=== PATIENT | female | born 1975 | race Caucasian/White ===

== ENCOUNTER 2016-11-02 17:26 | Emergency (ER) | payer MEDICAID ==
[2014-03-03 09:09] VITALS: BMI 37.8
[~2016-11-02 17:26] MED LIST: ADVAIR 250/501 DISK INH; CATAPRES0.1 MG PO; DEMEROL50 MG PO; DEXILANT60 MG PO; HYZAAR 50-12.51 TAB PO; K-DUR20 MEQ PO; KLONOPIN0.5 MG PO; LEVSIN/ANASP0.125 MG PO; MOTRIN400 MG PO; PROZAC20 MG PO; SINGULAIR10 MG PO; VENTOLIN HFA18 GM INH
[2016-11-02 17:55] LABS: BASOPHILS 0.1 % (0-2); EOSINOPHILS 1.7 % (0-7); HEMATOCRIT 40.1 % (36.0-48.0); HEMOGLOBIN 12.8 g/dL (12-16); IMMATURE GRANULOCYTES 0.3 % (0-5); LYMPHOCYTES 27.7 % (15-50); MCH 26.2 pg (26.0-34.0); MCHC 31.9 g/dL (31.0-37.0); MEAN PLATELET VOLUME 10.5 fL (7.4-10.4); MONOCYTES 7.2 % (2-11); PLATELET COUNT 311 10x3/uL (130-400); RBC 4.89 10x6/uL (4.00-5.40); RDW 14.4 % (11.5-14.5); WBC 8.6 10x3/uL (4.8-10.8)
[2016-11-02 18:22] LABS: ALBUMIN 3.4 g/dL (3.4-5.0); ALKALINE PHOSPHATASE 106 U/L (46-116); ALT (SGPT) 23 U/L (10-68); BILIRUBIN - TOTAL 0.21 mg/dL (0.2-1.3); CALC OSMOLALITY 278 mosm/kg (275-300); CALCIUM 8.6 mg/dL (8.5-10.1); CARBON DIOXIDE 29.8 mmol/L (21.0-32.0); CHLORIDE - SERUM 102 mmol/L (98-107); CREATININE - SERUM 0.8 mg/dL (0.6-1.3); GLUCOSE 131 mg/dL (74-106); POTASSIUM - SERUM 3.6 mmol/L (3.5-5.1); PROTEIN - SERUM 7.7 g/dL (6.4-8.2); SODIUM 139 mmol/L (136-145); UREA NITROGEN 10 mg/dL (7-18); eGFR NON AFRICAN AMERICAN 83 mL/min (90-120)
[2016-11-02 18:28] LABS: CHOLESTEROL, TOTAL 204 mg/dL (0-200); CKMB 0.2 U/L (0.0-3.6); CREATINE KINASE 36 UL (21-215); HDL CHOLESTEROL 41 mg/dL (32-96); LDL CHOLESTEROL 140 mg/dL (0-100); LDL-HDL RATIO 3.4 ratio (1.5-3.5); TRIGLYCERIDE 118 mg/dL (30-200)
[2016-11-02 18:30] LABS: TROPONIN-I < 0.017 ng/mL (0.000-0.060)
== END 2016-11-02 20:17 | disposition home or self-care (01) ==
LOC: D.ER 17:26
PROVIDERS: Family Medicine
DX: R07.89 Other chest pain (principal); K21.9 Gastro-esophageal reflux disease without esophagitis; I10 Essential (primary) hypertension; K58.9 Irritable bowel syndrome, unspecified; J45.909 Unspecified asthma, uncomplicated

== ENCOUNTER 2017-03-21 15:43 | Emergency (ER) | payer MEDICARE, MEDICAID ==
[2014-03-03 09:09] VITALS: BMI 37.8
[2017-03-21 17:08] LABS: BASOPHILS 0.1 % (0-2); EOSINOPHILS 0.9 % (0-7); HEMATOCRIT 41.9 % (36.0-48.0); HEMOGLOBIN 13.8 g/dL (12-16); IMMATURE GRANULOCYTES 0.5 % (0-5); LYMPHOCYTES 22.2 % (15-50); MCH 26.4 pg (26.0-34.0); MCHC 32.9 g/dL (31.0-37.0); MCV 80.1 fL (80.0-100.0); MEAN PLATELET VOLUME 12.7 fL (7.4-10.4); MONOCYTES 6.8 % (2-11); NEUTROPHILS 69.5 % (40-80); PLATELET COUNT 292 10x3/uL (130-400); RBC 5.23 10x6/uL (4.00-5.40); RDW 14.5 % (11.5-14.5); WBC 8.5 10x3/uL (4.8-10.8)
[2017-03-21 17:31] LABS: ALBUMIN 3.3 g/dL (3.4-5.0); ALKALINE PHOSPHATASE 128 U/L (46-116); ALT (SGPT) 23 U/L (10-68); BILIRUBIN - TOTAL 0.13 mg/dL (0.2-1.3); CALC OSMOLALITY 274 mosm/kg (275-300); CALCIUM 8.8 mg/dL (8.5-10.1); CARBON DIOXIDE 29.6 mmol/L (21.0-32.0); CHLORIDE - SERUM 104 mmol/L (98-107); CREATININE - SERUM 1.1 mg/dL (0.6-1.3); GLUCOSE 103 mg/dL (74-106); POTASSIUM - SERUM 3.6 mmol/L (3.5-5.1); PROTEIN - SERUM 7.4 g/dL (6.4-8.2); SODIUM 138 mmol/L (136-145); UREA NITROGEN 11 mg/dL (7-18); eGFR NON AFRICAN AMERICAN 58 mL/min (90-120)
[2017-03-21 17:42] LABS: CHOL - HDL RATIO 4.9 ratio (2.3-4.1); CHOLESTEROL, TOTAL 187 mg/dL (0-200); CKMB 0.3 U/L (0.0-3.6); CREATINE KINASE 40 UL (21-215); HDL CHOLESTEROL 38 mg/dL (32-96); LDL CHOLESTEROL 127 mg/dL (0-100); LDL-HDL RATIO 3.3 ratio (1.5-3.5); TRIGLYCERIDE 110 mg/dL (30-200)
[2017-03-21 17:44] LABS: TROPONIN-I < 0.017 ng/mL (0.000-0.060)
== END 2017-03-21 18:49 | disposition home or self-care (01) ==
LOC: D.ER 15:43
PROVIDERS: Emergency Medicine
DX: R07.89 Other chest pain (principal); F17.200 Nicotine dependence, unspecified, uncomplicated

== ENCOUNTER 2017-05-30 10:47 | Emergency (ER) | payer MEDICARE, MEDICAID ==
[2014-03-03 09:09] VITALS: BMI 37.8
== END 2017-05-30 12:58 | disposition home or self-care (01) ==
LOC: D.ER 10:47
DX: S20.229A Contusion of unspecified back wall of thorax, initial encounter (principal); S30.0XXA Contusion of lower back and pelvis, initial encounter; W01.0XXA Fall on same level from slipping, tripping and stumbling without subsequent striking against object, initial encounter; Y93.89 Activity, other specified; Y92.019 Unspecified place in single-family (private) house as the place of occurrence of the external cause; F17.200 Nicotine dependence, unspecified, uncomplicated; K21.9 Gastro-esophageal reflux disease without esophagitis; I10 Essential (primary) hypertension

== ENCOUNTER 2017-06-19 19:28 | Emergency (ER) | payer MEDICARE ==
[2014-03-03 09:09] VITALS: BMI 37.8
[2017-06-19 20:02] LABS: BASOPHILS 0.2 % (0-2); EOSINOPHILS 1.4 % (0-7); HEMATOCRIT 39.6 % (36.0-48.0); HEMOGLOBIN 13.1 g/dL (12-16); IMMATURE GRANULOCYTES 0.2 % (0-5); LYMPHOCYTES 23.1 % (15-50); MCHC 33.1 g/dL (31.0-37.0); MCV 81.5 fL (80.0-100.0); MEAN PLATELET VOLUME 11.3 fL (7.4-10.4); NEUTROPHILS 68.1 % (40-80); PLATELET COUNT 303 10x3/uL (130-400); RBC 4.86 10x6/uL (4.00-5.40); RDW 14.5 % (11.5-14.5); WBC 12.3 10x3/uL (4.8-10.8)
[2017-06-19 20:18] LABS: ALBUMIN 3.2 g/dL (3.4-5.0); ALKALINE PHOSPHATASE 142 U/L (46-116); ALT (SGPT) 23 U/L (10-68); BILIRUBIN - TOTAL 0.19 mg/dL (0.2-1.3); CALC OSMOLALITY 275 mosm/kg (275-300); CARBON DIOXIDE 27.7 mmol/L (21.0-32.0); CHLORIDE - SERUM 103 mmol/L (98-107); GLUCOSE 96 mg/dL (74-106); POTASSIUM - SERUM 3.5 mmol/L (3.5-5.1); PROTEIN - SERUM 7.5 g/dL (6.4-8.2); SODIUM 138 mmol/L (136-145); UREA NITROGEN 12 mg/dL (7-18); eGFR NON AFRICAN AMERICAN 64 mL/min (90-120)
[2017-06-19 20:31] LABS: CHOL - HDL RATIO 5.2 ratio (2.3-4.1); CHOLESTEROL, TOTAL 187 mg/dL (0-200); CKMB 0.3 U/L (0.0-3.6); CREATINE KINASE 38 UL (21-215); HDL CHOLESTEROL 36 mg/dL (32-96); LDL CHOLESTEROL 117 mg/dL (0-100); LDL-HDL RATIO 3.3 ratio (1.5-3.5); TRIGLYCERIDE 170 mg/dL (30-200)
[2017-06-19 20:34] LABS: TROPONIN-I < 0.017 ng/mL (0.000-0.060)
== END 2017-06-19 19:29 | disposition home or self-care (01) ==
LOC: D.ER 19:28
PROVIDERS: Emergency Medicine
DX: R07.9 Chest pain, unspecified (principal); I10 Essential (primary) hypertension; R00.0 Tachycardia, unspecified

== ENCOUNTER 2017-08-11 19:50 | Emergency (ER) | payer MEDICARE ==
[2014-03-03 09:09] VITALS: BMI 37.8
[2017-08-11 20:31] LABS: BASOPHILS 0.1 % (0-2); EOSINOPHILS 0.1 % (0-7); HEMATOCRIT 43.5 % (36.0-48.0); HEMOGLOBIN 14.9 g/dL (12-16); IMMATURE GRANULOCYTES 0.4 % (0-5); LYMPHOCYTES 15.7 % (15-50); MCH 27.7 pg (26.0-34.0); MCHC 34.3 g/dL (31.0-37.0); MCV 80.9 fL (80.0-100.0); MEAN PLATELET VOLUME 11.5 fL (7.4-10.4); MONOCYTES 5.8 % (2-11); NEUTROPHILS 77.9 % (40-80); PLATELET COUNT 333 10x3/uL (130-400); RBC 5.38 10x6/uL (4.00-5.40); RDW 15.3 % (11.5-14.5); WBC 14.6 10x3/uL (4.8-10.8)
[2017-08-11 21:06] LABS: ALBUMIN 3.6 g/dL (3.4-5.0); ANION GAP 17.7 mmol/L (8-16); BILIRUBIN - TOTAL 0.5 mg/dL (0.2-1.3); CALCIUM 9.5 mg/dL (8.5-10.1); CARBON DIOXIDE 19.4 mmol/L (21.0-32.0); CREATININE - SERUM 0.9 mg/dL (0.6-1.3); POTASSIUM - SERUM 3.1 mmol/L (3.5-5.1); PROTEIN - SERUM 8.2 g/dL (6.4-8.2)
[2017-08-11 21:12] LABS: HCG SERUM NEGATIVE (NEGATIVE)
[2017-08-11 21:42] LABS: APPEARANCE CLEAR (CLEAR); BILIRUBIN NEGATIVE (NEGATIVE); COLOR YELLOW (YELLOW); GLUCOSE NEGATIVE (NEGATIVE); KETONE SMALL mg/dL (NEGATIVE); NITRITE NEGATIVE (NEGATIVE); PROTEIN NEGATIVE (NEGATIVE); UROBILINOGEN NORMAL (NORMAL)
== END 2017-08-12 00:25 | disposition home or self-care (01) ==
LOC: D.ER 19:50
PROVIDERS: Emergency Medicine
DX: E87.6 Hypokalemia (principal); R10.32 Left lower quadrant pain; D25.9 Leiomyoma of uterus, unspecified; N85.8 Other specified noninflammatory disorders of uterus; I10 Essential (primary) hypertension

== ENCOUNTER 2018-03-06 01:33 | Emergency (ER) | payer MEDICARE ==
[~2018-03-06] VITALS: Ht 154.9 cm; Wt 100.0 kg
[2018-03-06 01:45] VITALS: Ht 154.9 cm; Wt 100.0 kg
[2018-03-06 02:16] LABS: APPEARANCE CLEAR (CLEAR); BASOPHILS 0.2 % (0-2); BILIRUBIN NEGATIVE (NEGATIVE); COLOR YELLOW (YELLOW); EOSINOPHILS 0.8 % (0-7); GLUCOSE NEGATIVE (NEGATIVE); HEMATOCRIT 43.4 % (36.0-48.0); HEMOGLOBIN 14.3 g/dL (12-16); IMMATURE GRANULOCYTES 0.2 % (0-5); KETONE NEGATIVE (NEGATIVE); LYMPHOCYTES 22.6 % (15-50); MCH 27.6 pg (26.0-34.0); MCHC 32.9 g/dL (31.0-37.0); MCV 83.8 fL (80.0-100.0); MONOCYTES 5.9 % (2-11); NEUTROPHILS 70.3 % (40-80); NITRITE NEGATIVE (NEGATIVE); PLATELET COUNT 321 10x3/uL (130-400); PROTEIN NEGATIVE (NEGATIVE); RBC 5.18 10x6/uL (4.00-5.40); RDW 14.9 % (11.5-14.5); UROBILINOGEN NORMAL (NORMAL); WBC 10.6 10x3/uL (4.8-10.8)
[2018-03-06 02:33] LABS: ALBUMIN 3.5 g/dL (3.4-5.0); ALKALINE PHOSPHATASE 141 U/L (46-116); ALT (SGPT) 29 U/L (10-68); BILIRUBIN - TOTAL 0.28 mg/dL (0.2-1.3); CALC OSMOLALITY 280 mosm/kg (275-300); CALCIUM 8.9 mg/dL (8.5-10.1); CARBON DIOXIDE 28.4 mmol/L (21.0-32.0); CHLORIDE - SERUM 102 mmol/L (98-107); CREATININE - SERUM 0.8 mg/dL (0.6-1.3); GLUCOSE 92 mg/dL (74-106); POTASSIUM - SERUM 3.9 mmol/L (3.5-5.1); PROTEIN - SERUM 8.3 g/dL (6.4-8.2); SODIUM 140 mmol/L (136-145); UREA NITROGEN 17 mg/dL (7-18); eGFR NON AFRICAN AMERICAN 83 mL/min (90-120)
[2018-03-06 02:37] LABS: AMYLASE - SERUM 31 U/L (25-115); LIPASE 151 U/L (73-393); TROPONIN-I < 0.017 ng/mL (0.000-0.060)
[2018-03-06] MEDS ORDERED: PHENERGAN25 M1 PO (04:48)
[2018-03-06 05:18] VITALS: BP 183/114
== END 2018-03-06 05:20 | disposition home or self-care (01) ==
LOC: D.ER 01:33
PROVIDERS: Family Medicine
DX: A08.4 Viral intestinal infection, unspecified (principal); K92.1 Melena

== ENCOUNTER 2019-01-17 18:58 | Emergency (ER) | payer MEDICARE ==
[~2019-01-17] VITALS: Ht 154.9 cm; Wt 99.2 kg
[~2019-01-17 18:58] MED LIST changes: +PHENERGAN25 M1 PO
[2019-01-17 19:17] VITALS: Ht 154.9 cm; Wt 99.2 kg
[2019-01-17] MEDS ORDERED: KLONOPIN1 MG PO (19:19)
[2019-01-17] MEDS ORDERED: BYSTOLIC10 MG PO (19:19)
[2019-01-17 19:57] LABS: BASOPHILS 0.1 % (0-2); EOSINOPHILS 1.2 % (0-7); HEMATOCRIT 41.4 % (36.0-48.0); HEMOGLOBIN 13.5 g/dL (12-16); IMMATURE GRANULOCYTES 0.1 % (0-5); LYMPHOCYTES 33.6 % (15-50); MCH 28.1 pg (26.0-34.0); MCHC 32.6 g/dL (31.0-37.0); MCV 86.3 fL (80.0-100.0); MEAN PLATELET VOLUME 11.8 fL (7.4-10.4); MONOCYTES 6.7 % (2-11); NEUTROPHILS 58.3 % (40-80); PLATELET COUNT 296 10x3/uL (130-400); RDW 14.3 % (11.5-14.5); WBC 7.6 10x3/uL (4.8-10.8)
[2019-01-17 20:09] LABS: APPEARANCE CLEAR (CLEAR); BILIRUBIN NEGATIVE (NEGATIVE); COLOR YELLOW (YELLOW); GLUCOSE NEGATIVE (NEGATIVE); KETONE NEGATIVE (NEGATIVE); NITRITE NEGATIVE (NEGATIVE); PROTEIN NEGATIVE (NEGATIVE); SPECIFIC GRAVITY 1.015 (1.005-1.020); UROBILINOGEN NORMAL (NORMAL)
[2019-01-17 20:13] LABS: ALBUMIN 3.3 g/dL (3.4-5.0); ALKALINE PHOSPHATASE 127 U/L (46-116); ALT (SGPT) 28 U/L (10-68); BILIRUBIN - TOTAL 0.22 mg/dL (0.2-1.3); CALC OSMOLALITY 284 mosm/kg (275-300); CALCIUM 8.4 mg/dL (8.5-10.1); CARBON DIOXIDE 30.6 mmol/L (21.0-32.0); CHLORIDE - SERUM 106 mmol/L (98-107); CREATININE - SERUM 0.9 mg/dL (0.6-1.3); GLUCOSE 98 mg/dL (74-106); POTASSIUM - SERUM 3.6 mmol/L (3.5-5.1); PROTEIN - SERUM 7.4 g/dL (6.4-8.2); SODIUM 143 mmol/L (136-145); UREA NITROGEN 13 mg/dL (7-18); eGFR NON AFRICAN AMERICAN 72 mL/min (90-120)
[2019-01-17 20:16] LABS: AMYLASE - SERUM 32 U/L (25-115); LIPASE 144 U/L (73-393)
[2019-01-17 20:17] LABS: TROPONIN-I < 0.017 ng/mL (0.000-0.060)
[2019-01-17] MEDS ORDERED: FLOMAX0.4 MG PO (21:43)
[2019-01-17] MEDS ORDERED: PHENERGAN25 M1 PO (21:43)
[2019-01-17] MEDS ORDERED: TORADOL10 MG PO (21:46)
[2019-01-17 22:07] VITALS: BP 132/81
== END 2019-01-17 22:32 | disposition home or self-care (01) ==
LOC: D.ER 18:58
PROVIDERS: Family Medicine
DX: N20.0 Calculus of kidney (principal); I10 Essential (primary) hypertension

== ENCOUNTER 2019-06-03 23:26 | Observation (INO) | payer MEDICARE ==
[~2019-06-03] VITALS: Ht 154.9 cm; Wt 94.1 kg
--- NOTE | ~2019-06-03 | CN ---
PATIENT NAME:CHAKA LO MEDICAL RECORD: [id number] : 73 LOCATION:D. D.2123 ADMIT DATE: 06/04/19 ACCOUNT: [id number] CONSULTING PHYSICIAN: SAM MADERA MD REFERRING PHYSICIAN: ANDRES SINGLETON MD DATE OF CONSULTATION: 06/04/2019 HISTORY OF PRESENT ILLNESS: A 43-year-old female with strong family history of coronary artery disease, history of hypertension as well as cardiac dysrhythmias, hyperglycemia, admitted with chest pain, actually was transferred from outside hospital for further workup. Symptoms began at work, felt like an elephant was sitting on her chest, radiating to the left jaw, accompanied by shortness of breath, nausea and diaphoresis, relieved with nitroglycerin, was noted with initial ECG to have ST-T changes anterolaterally. These somewhat resolved after symptomatology last year. We are asked to see her concerning her cardiovascular status. PAST MEDICAL HISTORY: Includes; 1. History of hypertension. 2. Cardiac dysrhythmias. MEDICATIONS: Include Bystolic 10 mg every day, aspirin 81 every day. SOCIAL HISTORY: Nonsmoker, nondrinker. No set exercise program. Obviously, easily takes care of all her ADLs. ALLERGIES: IODINE, MORPHINE, CODEINE AND BUSPAR. PHYSICAL EXAMINATION: GENERAL: Well-developed, well-nourished female in no acute distress. VITAL SIGNS: Blood pressure 146/76, pulse 56 and regular. HEENT: Normocephalic, atraumatic. NECK: No JVD or bruit. HEART: Regular, I to II/ systolic ejection murmur. LUNGS: Good air excursion. ABDOMEN: Soft, nontender. EXTREMITIES: Pulses 2+ with no edema. DIAGNOSTIC DATA: EKG shows nonspecific ST-T changes. IMPRESSION: Acute coronary syndrome with rest symptomology. PLAN: For angiography, intervention based on above. TRANSINT:[id number] Voice Confirmation ID: [id number] DOCUMENT ID: [id number] SAM MADERA MD CC: [id number] DICTATION DATE: 06/04/19925 SQUARING SHEAR OPERATOR: 06/04/19 1314 [place] [address]
--- NOTE | ~2019-06-03 | OP ---
PATIENT NAME: CHAKA LO MEDICAL RECORD: [id number] :73 LOCATION:D.M2 D.2122 ADMISSION DATE:06/04/19 SURGEON: SAM MADERA MD DATE OF OPERATION: PROCEDURE: Left heart catheterization, selective coronary angiography, right femoral artery approach. CATHETERS: A 5-Italian sheath, 5/4 left and right Claudia, 5/4 pig. The procedure was well tolerated. The patient returned to rae. Sheath removed. ExoSeal device placed. FINDINGS: Left ventriculography in 30-degree ANDERSON view. Normal wall motion. Normal systolic function. CORONARY ANATOMY: LEFT MAIN: Left main is free of disease. LAD: Free of disease in the diagonal system. CIRCUMFLEX: Free of disease in the marginal system. RIGHT CORONARY ARTERY: Dominant artery, gives rise to PDA, free of disease. IMPRESSION: Normal left ventricular systolic function, normal coronary anatomy. TRANSINT:[id number] Voice Confirmation ID: [id number] DOCUMENT ID: [id number] SAM MADERA MD CC: [id number] DICTATION DATE: 06/04/19 112 MILLING/POLISHING OPERATOR: 06/04/19 215 DIS IN 06/04/19 [place] [id number] [place] [id number]
--- NOTE | ~2019-06-03 | HEMODYNAMI ---
PATIENT:CHAKA LO MEDICAL RECORD: [id number] : 73 LOCATION:[facility] D.2123 [facility]# [id number] ADMISSION DATE: 06/04/19 Generatedon:06/04/201911:13 Patient name: CHAKA LO Patient #: [id number] SSN: : Date of study: 06/04/2019 Page: Of Hemodynamic Procedure Report Patient Data Patient Demographics Procedure consent was obtained First Name: CHAKA Gender: Female Last Name: WALLY : 1975 Middle Initial: L Age: 43 year(s) Patient #: [id number] Race: Unknown Additional ID: [id number] Contact details [address]: [address] [place] [address] State: [place] City: [place] Zip code: [address] Past Medical History Allergies Allergen Reaction Date Comments Reported Other allergy 06/04/2019 see chrt Admission Admission Data Admission Date: 06/04/2019 Admission Time: 0:25 Room #: D2123 Lab Results Lab Result Date: 06/04/2019 Lab Result Time: 0:00 Biochemistry Name Units Result Min Max BUN mg/dl 13 --(--*-)-- 7 18 Creatinine mg/dl 0.8 --(-*--)-- 0.6 1.3 eGFR ml/min 82.99561 *-(----)-- 90 120 NONAFRICAN CBC Name Units Result Min Max Hemoglobin g/dl 13.5 --(*---)-- 13.5 17.5 Procedure Procedure Types Cath Procedure Diagnostic Procedure LHC LHC w/Coronaries Procedure Description Procedure Date Procedure Date: 06/04/2019 Procedure Start Time: 11:04 Procedure End Time: 11:11 Procedure Staff Name Function Christopher Posey MD Performing Physician Cathie Mancilla RN Nurse Pilar Mariscal RT Relationship Executive Michelle Bal RT Scrub Amelie Connors RT Monitor Indication Chest pain Procedure Data Cath Procedure Fluoroscopy Diagnostic fluoroscopy Total fluoroscopy Time: 0.9 time: 0.9 min min Diagnostic fluoroscopy Total fluoroscopy dose: 388 dose: 388 mGy mGy Contrast Material Contrast Material Type Amount (ml) Isovue 300 51 Entry Location Entry Primary Successful Side Size Upsize Upsize Entry Closure Succes sful Closure Location (Fr) 1 (Fr) 2 (Fr) Remarks Device Remarks Femoral Right 5 Fr Exoseal artery Estimated blood loss: 5 ml Diagnostic catheters Device Type Used For End Catheter Placement MULTIPACK JL 4.0 5Fr Procedure catheter MULTIPACK 3DRC 5Fr Procedure catheter MULTIPACK Pigtail 5 Fr Ventriculography catheter Procedure Complications No complications Procedure Medications Medication Administration Route Dosage 0.9% NaCl I.V. 100 ml/hr Oxygen etCO2 Nasal cannula 2 l/min Lidocaine 2% added to field 20 Heparin Flush Bag added to field 2 bags (1000units/500ml NS) Versed I.V. 2 mg Fentanyl I.V. 100 mcg Versed I.V. 2 mg Fentanyl I.V. 50 mcg Fentanyl I.V. 50 mcg Lopressor I.V. 5 mg Hemodynamics Rest HGB: 13.5 (g/dl) Heart Rate: 51 (bpm) Pressure Samples Time Site Value (mmHg) Purpose Heart Use Rate(bpm) 11:08 LV 184/10,17 Snapshot 74 Gradients Valve Time Site Site Mean SEP/DFP Peak To Heart Use 1 2 (mmHg) (sec/min) Peak Rate (mmHg) (bpm) Aortic 11:08 LV AO 79 Snapshots Pre Cath Intra NCS Post Cath Vital Signs Time Heart Resp SPO2 etCO2 NIBP (mmHg) Rhythm Pain Sedation Rate (ipm) (%) (mmHg) Status Level (bpm) 10:46:44 71 19 100 35.5 189/105(142) NSR 0 (11) 10(A) , No pain 10:51:37 78 19 98 37 188/100(166) NSR 0 (11) 10(A) , No pain 10:56:21 82 20 96 37.8 166/99(121) NSR 0 (11) 10(A) , No pain 11:01:02 88 17 97 32.4 185/108(136) NSR 0 (11) 10(A) , No pain 11:05:51 98 17 98 32.5 176/109(148) NSR 0 (11) 10(A) , No pain 11:10:35 61 17 97 35.5 162/111(120) NSR 0 (11) 10(A) , No pain Medications Time Medication Route Dose Verified Delivered Reason Notes Eff ectiveness by by 10:46:38 0.9% NaCl I.V. 100 Christopher Cathie used for ml/hr Martha Laurent procedure MD ABERNATHY 10:46:45 Oxygen etCO2 2 Christopher Cathie used for Nasal l/min [facility] procedure cannula MD ABERNATHY 10:46:49 Lidocaine 2% added 20ml Christopher Christopher for local to vial [facility] anesthetic field MD CARVAJAL 10:46:55 Heparin Flush added 2 Christopher Christopher used for Bag to bags [facility] procedure (1000units/500ml field MD CARVAJAL NS) 10:57:17 Versed I.V. 2 mg Christopher Cathie for Martha Laurent sedation MD ABERNATHY 10:57:25 Fentanyl I.V. 100 Christopher Cathie for mcg [facility] sedation MD ABERNATHY 11:01:41 Versed I.V. 2 mg Christopher Cathie for Martha Laurent sedation MD ABERNATHY 11:01:45 Fentanyl I.V. 50 Christopher Cathie for mcg [facility] sedation MD ABERNATHY 11:05:30 Fentanyl I.V. 50 Christopher Cathie for mcg [facility] sedation MD ABERNATHY 11:05:44 Lopressor I.V. 5 mg Christopher Cathie Per Martha Laurent physician sugar cane planting equipment operator Log Time Note 10:25:23 Informed consent obtained and on chart 10:25:54 Procedure Status Urgent Heart Cath (IP). 10:25:56 Time tracking: Call back (After hours or weekends) 10:26:00 Plan of Care:Hemodynamics will remain stable., Cardiac rhythm will remain stable., Comfort level will be maintained., Respiratory function will remain adequate., Patient/ family verbilizes understanding of procedure., Procedure tolerated without complication., Recovers from procedure without complications.. 10:26:01 Pilar Maricsal RT(R) sent for patient. Start room use. 10:26:05 H&P Date Dictated: 06/04/2019 ER History on chart.. 10:39:40 Patient received from Med II to CCL 1 Alert and oriented. Tansferred to table in Supine position. 10:39:41 Warm blankets applied, and maximus hugger turned on for patient comfort. 10:39:45 Correct patient and procedure confirmed by team. 10:39:50 Family in waiting room. 10:39:53 Patient NPO since Midnight. 10:40:07 Patient allergic to Other allergysee chrt 10:40:10 Is the patient allergic to Iodine/contrast media? Yes. 10:40:11 Was the patient premedicated? Yes 10:40:13 Is patient on blood thinner?No 10:40:15 Patient diabetic? No. 10:40:24 Snore? Yes 10:40:26 Sleep apnea? No 10:40:34 Airway obstruction? Yes childhood asthma 10:40:38 Dentures? No ? 10:40:42 Patient not . Patient has had hysterectomy. 10:40:49 Patient pain scale 6/10 ?. 10:41:00 IV patent on arrival in left forearm with 0.9% NaCl at [facility]. 10:41:51 Lab Result : BUN 13 mg/dl 10:41:51 Lab Result : Creatinine 0.8 mg/dl 10:41:51 Lab Result : eGFR NONAFRICAN 82.74815 ml/min 10:41:51 Lab Result : Hemoglobin 13.5 g/dl 10:41:58 Lab results completed and on chart. 10:42:03 Stress Test: no; N/A ? 10:42:08 Right groin area was prepped with chlora-prep and draped in sterile fashion 10:42:09 Sharps counted by scrub and verified by R.N. 10:42:13 Physician arrived 10:42:20 Use device set Femoral Dx 10:42:22 Bag Decanter (2002) opened to sterile field. 10:42:24 ACIST Syringe (98663) opened to sterile field. 10:42:25 Medline Cath Pack ([id number]) opened to sterile field. 10:42:26 ACIST Hand Control (89134) opened to sterile field. 10:42:26 ACIST Manifold (28800) opened to sterile field. 10:42:27 DIAGNOSTIC Multipack 5Fr catheter set (QV3540) opened to sterile field. 10:42:30 Tegaderm 4 x 4 (1626W) opened to sterile field. 10:42:33 SHEATH 5FR Guy (GQI054) opened to sterile field. 10:42:34 MOSESALD Guide Wire (485-185) opened to sterile field. 10:45:04 ECG and BP/O2 sat monitors applied to patient. 10:45:08 Vital chart was started 10:45:27 Baseline sample Acquired. 10:45:31 Rhythm: sinus rhythm 10:45:34 Full Disclosure recording started 10:46:38 0.9% NaCl 100 ml/hr I.V. was administered by Cathie Mancilla RN; used for procedure; Verbal order read back and verified. 10:46:45 Oxygen 2 l/min etCO2 Nasal cannula was administered by Cathie Mancilla RN; used for procedure; Verbal order read back and verified. 10:46:49 Lidocaine 2% 20ml vial added to field was administered by Christopher Posey MD; for local anesthetic; Verbal order read back and verified. 10:46:55 Heparin Flush Bag (1000units/500ml NS) 2 bags added to field was administered by Christopher Posey MD; used for procedure; Verbal order read back and verified. 10:54:25 Zero performed for pressure channel P1 10:55:10 --------ALL STOP TIME OUT------ 10:55:11 Final Timeout: patient, procedure, and site verified with staff and physician. All members of the team are in agreement. 10:55:13 Right groin site verified by team. 10:55:17 Fire Safety Assessment: A--An alcohol-based skin anteseptic being used preoperatively., C--Open oxygen or nitrous oxide is being used., D--An ESU, laser, or fiber-optic light is being used. 10:55:24 Physical assessment completed. ASA score P 3 - A patient with severe systemic disease as per Christopher Posey MD. 10:56:14 Indication : Chest pain 10:57:17 Versed 2 mg I.V. was administered by Cathie Mancilla RN; for sedation; Verbal order read back and verified. 10:57:25 Fentanyl 100 mcg I.V. was administered by Cathie Mancilla RN; for sedation; Verbal order read back and verified. 11:01:41 Versed 2 mg I.V. was administered by Cathie Mancilla RN; for sedation; Verbal order read back and verified. 11:01:45 Fentanyl 50 mcg I.V. was administered by Cathie Mancilla RN; for sedation; Verbal order read back and verified. 11:02:34 2) 60-89 Mildly reduced kidney function, and other findings (as for stage 1) point to kidney disease. 11:02:38 Maximum allowable contrast dose (3.7 X eGFR X 0.75)227 ml. 11:02:43 Sedation plan: IV Moderate Sedation Medication:Versed, Fentanyl 11:02:56 Procedure started. 11:04:01 Local anesthetic to right femoral artery with Lidocaine 2% by Christopher Posey MD.INITIAL ACCESS ONLY 11:04:11 A 5 Fr sheath was inserted into the Right Femoral artery 11:04:52 J wire advanced. 11:05:30 Fentanyl 50 mcg I.V. was administered by Cathie Mancilla RN; for sedation; Verbal order read back and verified. 11:05:44 Lopressor 5 mg I.V. was administered by Cathie Mancilla RN; Per physician; Verbal order read back and verified. 11:05:47 A MULTIPACK JL 4.0 5Fr catheter was advanced over the wire and used for Procedure. 11:06:07 LCA angiography performed. 11:06:09 Catheter removed. 11:06:37 A MULTIPACK 3DRC 5Fr catheter was advanced over the wire and used for Procedure. 11:06:41 RCA angiography performed. 11:07:45 Catheter removed. 11:07:54 A MULTIPACK Pigtail 5 Fr catheter was advanced over the wire and used for Ventriculography. 11:07:58 LV angiography performed. 11:08:43 EF : 55 % 11:08:45 Catheter removed. 11:08:47 EXOSEAL 5Fr (EX500) opened to sterile field. 11:09:11 Sheath removed intact; hemostasis achieved with Exoseal to the Right Femoral artery. 11:09:14 Procedure ended.(Physican Out) 11:09:18 Fluoroscopy time 00.90 minutes. 11:09:23 Fluoroscopy dose: 388 mGy 11:09:23 Flurop Dose total: 388 11:09:31 Dose Area Product 50. mGy/cm. 11:09:41 Contrast amount:Isovue 300 51ml. 11:09:48 Maximum allowable dose exceeded? No. 11:09:52 Insertion/operative site no bleeding no hematoma. 11:09:56 Post-op/insertion site Right Femoral artery dressed using a 4 x 4 and Tegaderm. 11:09:58 Post Procedure Pulses reassessed and unchanged 11:10:05 Post-procedure physical assessment completed. ASA score P 3 - A patient with severe systemic disease as per Christopher Posey MD. 11:10:09 Post procedure rhythm: unchanged. 11:10:12 Estimated blood loss: 5 ml 11:10:14 Post procedure instruction explained to patient.Patient verbalizes understanding. 11:10:43 Procedure and supply charges have been captured, reviewed, submitted and are correct. 11:11:14 Procedure Complication : No complications 11:11:17 Vital chart was stopped 11:11:21 [facility] Findings: mild to moderate CAD (<70%) 11:11:24 Operative report dictated upon procedure completion. 11:11:26 See physician's report for complete and final results. 11:11:29 Report given to [facility]. 11:11:33 Patient transfered to [facility] with Bed. 11:11:35 Procedure ended. 11:11:35 Full Disclosure recording stopped 11:11:40 End room use (Document Last) 11:11:57 End room use (Document Last) Device Usage Item Name Manufacture Quantity Catalog Hospital Part Current Minimal L ot# / Number Charge Number Stock Stock Serial# Code Bag Microtek 1 [id number] 52400 822434 5 Decanter Medical Inc. () ACIST Acist 1 50954 138874 567120 980496 20 Syringe Medical (99574) Systems Inc Medline Medline 1 [id number] 630557 83048 382001 5 Cath Pack ([id number]) ACIST Hand Acist 1 06207 836073 658531 274280 5 Control Medical (26577) Systems Inc ACIST Acist 1 01069 718383 174212 603706 5 Manifold Medical (14022) Systems Inc DIAGNOSTIC Cardinal 1 CT1327 570799 73650 122833 30 Scholrly 5Fr catheter set (BP1965) Tegaderm 4 3M 1 1626W 256563 300071 322558 5 x 4 (1626W) SHEATH 5FR Terumo 1 HSJ733 483546 650841 565128 5 Guy (EPR228) EMERALD Cardinal 1 940-455 974374 592467 805838 5 Guide Wire [facility] (972-483) MULTIPACK Cardinal 1 765606 5 JL 4.0 5Fr Health catheter MULTIPACK Cardinal 1 623228 5 3DRC 5Fr Health catheter MULTIPACK Cardinal 1 004933 5 Pigtail 5 Health Fr catheter EXOSEAL 5Fr Cardinal 1 EX500 429099 199844 577448 10 (EX500) Health Signature Audit Keyes Stage Time Signature Unsigned Intra-Procedure 06/04/2019 Amelie Connors 11:11:57 AM RT(R) Intra-Procedure 06/04/2019 Cathie Mancilla 11:12:42 AM RN Intra-Procedure 06/04/2019 Christopher Griffiths 11:13:13 AM Frank CARVAJAL [facility] [address] [place] [address]
[~2019-06-03 23:26] MED LIST changes: +BYSTOLIC10 MG PO; +FLOMAX0.4 MG PO; +KLONOPIN1 MG PO; +TORADOL10 MG PO
[2019-06-03] MEDS ORDERED: ASPIRIN81 MG PO (23:29)
[2019-06-03 23:35] LABS: BASOPHILS 0.1 % (0-2); EOSINOPHILS 0.7 % (0-7); HEMATOCRIT 41.2 % (36.0-48.0); HEMOGLOBIN 13.5 g/dL (12-16); IMMATURE GRANULOCYTES 0.3 % (0-5); LYMPHOCYTES 28.1 % (15-50); MCH 28.4 pg (26.0-34.0); MCHC 32.8 g/dL (31.0-37.0); MCV 86.6 fL (80.0-100.0); MEAN PLATELET VOLUME 10.9 fL (7.4-10.4); NEUTROPHILS 65.8 % (40-80); PLATELET COUNT 295 10x3/uL (130-400); RBC 4.76 10x6/uL (4.00-5.40); WBC 11.6 10x3/uL (4.8-10.8)
[2019-06-03 23:47] LABS: APTT 30.8 SECONDS (22.8-39.4); CALC OSMOLALITY 278 mosm/kg (275-300); CALCIUM 8.9 mg/dL (8.5-10.1); CARBON DIOXIDE 26.8 mmol/L (21.0-32.0); CHLORIDE - SERUM 104 mmol/L (98-107); CREATININE - SERUM 0.8 mg/dL (0.6-1.3); GLUCOSE 100 mg/dL (74-106); INR 0.97 (0.85-1.17); POTASSIUM - SERUM 3.5 mmol/L (3.5-5.1); PROTIME 12.9 SECONDS (11.6-15.0); SODIUM 140 mmol/L (136-145); UREA NITROGEN 13 mg/dL (7-18); eGFR NON AFRICAN AMERICAN 82 mL/min (90-120)
[2019-06-04] VITALS: BP 103/50
[2019-06-04 00:02] LABS: ALBUMIN 3.5 g/dL (3.4-5.0); ALKALINE PHOSPHATASE 145 U/L (30-120); ALT (SGPT) 28 U/L (10-68); BILIRUBIN - TOTAL 0.37 mg/dL (0.2-1.3); CKMB 1.3 U/L (0.0-3.6); CREATINE KINASE 77 UL (21-215); MAGNESIUM - SERUM 2.5 mg/dL (1.8-2.4); PROTEIN - SERUM 7.8 g/dL (6.4-8.2); TROPONIN-I < 0.017 ng/mL (0.000-0.060)
[2019-06-04 02:42] VITALS: BP 103/50; BMI 39.2
[2019-06-04 04:00] VITALS: BP 136/76
[2019-06-04 06:42] LABS: CREATINE KINASE 62 UL (21-215); TROPONIN-I < 0.017 ng/mL (0.000-0.060)
[2019-06-04 08:21] VITALS: BP 146/76
[2019-06-04 09:55] LABS: BASOPHILS 0.1 % (0-2); EOSINOPHILS 1.3 % (0-7); HEMATOCRIT 42.7 % (36.0-48.0); HEMOGLOBIN 13.9 g/dL (12-16); IMMATURE GRANULOCYTES 0.1 % (0-5); LYMPHOCYTES 37.2 % (15-50); MCH 28.3 pg (26.0-34.0); MCHC 32.6 g/dL (31.0-37.0); MCV 86.8 fL (80.0-100.0); MEAN PLATELET VOLUME 11.7 fL (7.4-10.4); MONOCYTES 6.8 % (2-11); NEUTROPHILS 54.5 % (40-80); PLATELET COUNT 282 10x3/uL (130-400); RBC 4.92 10x6/uL (4.00-5.40); RDW 14.3 % (11.5-14.5)
[2019-06-04 09:57] LABS: WBC 8.2 10x3/uL (4.8-10.8)
[2019-06-04 10:06] LABS: BILIRUBIN NEGATIVE (NEGATIVE); GLUCOSE NEGATIVE (NEGATIVE); KETONE NEGATIVE (NEGATIVE); NITRITE NEGATIVE (NEGATIVE); SPECIFIC GRAVITY 1.015 (1.005-1.020); UROBILINOGEN NORMAL (NORMAL)
[2019-06-04 10:14] LABS: ALT (SGPT) 31 U/L (10-68); CALC OSMOLALITY 278 mosm/kg (275-300); CALCIUM 8.9 mg/dL (8.5-10.1); CARBON DIOXIDE 27.4 mmol/L (21.0-32.0); CHLORIDE - SERUM 104 mmol/L (98-107); CHOL - HDL RATIO 3.8 ratio (2.3-4.1); CHOLESTEROL, TOTAL 185 mg/dL (0-200); CREATININE - SERUM 0.8 mg/dL (0.6-1.3); GLUCOSE 96 mg/dL (74-106); HDL CHOLESTEROL 49 mg/dL (32-96); LDL CHOLESTEROL 125 mg/dL (0-100); LDL-HDL RATIO 2.6 ratio (1.5-3.5); POTASSIUM - SERUM 3.8 mmol/L (3.5-5.1); SODIUM 140 mmol/L (136-145); TRIGLYCERIDE 57 mg/dL (30-200); UREA NITROGEN 13 mg/dL (7-18); eGFR NON AFRICAN AMERICAN 82 mL/min (90-120)
[2019-06-04 10:16] LABS: UDS - AMPHET NEGATIVE QUAL (NEGATIVE); UDS - BARB NEGATIVE QUAL (NEGATIVE); UDS - BENZO NEGATIVE QUAL (NEGATIVE); UDS - COCAINE NEGATIVE QUAL (NEGATIVE); UDS - OPIATE NEGATIVE QUAL (NEGATIVE); UDS - PCP NEGATIVE QUAL (NEGATIVE); UDS - THC NEGATIVE QUAL (NEGATIVE)
[2019-06-04 10:34] VITALS: Ht 154.9 cm; Wt 94.1 kg
[2019-06-04] MEDS ORDERED: PROTONIX40 MG PO (10:35)
--- NOTE | 2019-06-04 10:41 | NUR ---
CONSENTS SIGNED. PRE-OPS GIVEN. TO SPUN PASTE MACHINE OPERATOR BY BED.
--- NOTE | 2019-06-04 11:31 | NUR ---
BACK FROM ANIMAL BEHAVIORIST. VS WNL. RIGHT GROIN STABLE WITHOUT BLEEDING OR HEMATOMA NOTED. WILL MONITOR.
--- NOTE | 2019-06-04 13:01 | NUR ---
BED REST UP. GROIN STABLE.
--- NOTE | 2019-06-04 14:18 | NUR ---
IV DCD BY STUDENT. DC PLANS GIVEN. UNDERSTANDING VOICED. ESCORTED TO CAR BY W/C.
== END 2019-06-04 14:19 | disposition home or self-care (01) ==
LOC: D.ER 23:26 → OBSVTIME 06-04 00:25 → D.M2 06-04 00:25
PROVIDERS: Family Medicine; Internal Medicine Interventional Cardiology; ADMIT Internal Medicine Nephrology; ATTEND Internal Medicine Nephrology
DX: I24.9 Acute ischemic heart disease, unspecified (principal); I10 Essential (primary) hypertension; F32.9 Major depressive disorder, single episode, unspecified; Z85.038 Personal history of other malignant neoplasm of large intestine

== ENCOUNTER 2020-01-07 17:13 | Observation (INO) | payer MEDICARE ==
[~2020-01-07] VITALS: Ht 154.9 cm; Wt 102.1 kg
--- NOTE | ~2020-01-07 | EC ---
PATIENT:CHAKA LO DATE OF SERVICE: 01/07/20 SEX: F MEDICAL RECORD: [id number] DATE OF : 73 LOCATION:D.M2 D.212 AGE OF PATIENT: 44 ADMISSION DATE: 01/07/20 REFERRING PHYSICIAN: INTERPRETING PHYSICIAN: SAM MADERA MD ECHOCARDIOGRAM REPORT ECHO CHARGES 4 ECHO COMPLETE Date: 01/09/20 CLINICAL DIAGNOSIS: CHEST PAIN ECHOCARDIOGRAPHIC MEASUREMENTS (adult normal given) AC root (d.<3.7cm) 3.8 cm LV Septum d (<1.2 cm> 1.3 cm Valve Excursion 1.3 cm LV Septum (systole) 1.6 cm Left Atria (s.<4.0cm> 3.4 cm LVPW d(<1.2cm) 1.5 cm RV (d.<2.3cm) 3.4 cm LVPW (sytole) 1.8 cm LV diastole(<5.6CM) 4.6 cm MV E-F(>70mm/sec) cm LV systole 2.6 cm LVOT Diameter 2.0 cm MV exc.(>10mm) cm Est.ejection fraction (50-75%) % DOPPLER: LVIT cm/sec A 58.0 cm/sec E 75.0 cm/sec LA cm/sec RVSP 18 mmHg LVOT 70 cm/sec AOP1/2T m/s Asc. Ao 126 cm/sec RVOT 66 cm/sec RA cm/sec PA 103 cm/sec AV Gradient Peak 6.37 mmHg AV Mean 3.81 mmHg AV Area 1.6 cm MV Gradient Peak 0.98 mmHg MV Mean 0.37 mmHg MV Area cm COMMENTS: Setter Helper: 2 TYRA GARCÍA Payroll Assistant: 3 Dr. Eden TAPE# PACS Pericardial Effusion N DATE OF SERVICE: Adequate 2D, color flow imaging, spectral Doppler, and M-Mode. Mild LVH. LV internal dimension is normal. Wall motion is normal. EF is greater than or equal to 55%. Aortic valve is tricuspid. No evidence of stenosis by Doppler interrogation. Left atrium is normal. Mitral valve shows no prolapse. Physiologic MR. Right-sided chamber is grossly normal. Physiologic TR. ECHOCARDIOGRAM REPORT [id number] CHAKA LO TRANSINT:[id number] Voice Confirmation ID: [id number] DOCUMENT ID: [id number] SAM MADERA MD CC: [id number] DICTATION DATE: 01/10/20 1302 SURFACE GRINDER TENDER: 01/10/202211 DIS IN 01/09/20 [place] [id number] [place] [address]
[~2020-01-07 17:13] MED LIST changes: +ASPIRIN81 MG PO; +PROTONIX40 MG PO
[2020-01-07 18:01] LABS: BASOPHILS 0.1 % (0-2); EOSINOPHILS 1.2 % (0-7); HEMOGLOBIN 13.4 g/dL (12-16); IMMATURE GRANULOCYTES 0.2 % (0-5); LYMPHOCYTES 26.4 % (15-50); MCHC 32.7 g/dL (31.0-37.0); MCV 85.6 fL (80.0-100.0); MEAN PLATELET VOLUME 11.2 fL (7.4-10.4); MONOCYTES 5.9 % (2-11); NEUTROPHILS 66.2 % (40-80); PLATELET COUNT 319 10x3/uL (130-400); RBC 4.79 10x6/uL (4.00-5.40); RDW 14.1 % (11.5-14.5); WBC 8.6 10x3/uL (4.8-10.8)
[2020-01-07 18:40] LABS: CALC OSMOLALITY 276 mosm/kg (275-300); CALCIUM 8.6 mg/dL (8.5-10.1); CHLORIDE - SERUM 105 mmol/L (98-107); CREATININE - SERUM 0.8 mg/dL (0.6-1.3); POTASSIUM - SERUM 3.4 mmol/L (3.5-5.1); SODIUM 137 mmol/L (136-145); UREA NITROGEN 12 mg/dL (7-18); eGFR NON AFRICAN AMERICAN 82 mL/min (90-120)
[2020-01-07 18:41] LABS: GLUCOSE 146 mg/dL (74-106)
[2020-01-07 18:56] LABS: ALBUMIN 3.5 g/dL (3.4-5.0); ALKALINE PHOSPHATASE 155 U/L (30-120); ALT (SGPT) 47 U/L (10-68); BILIRUBIN - TOTAL 0.32 mg/dL (0.2-1.3); CKMB 0.9 U/L (0.0-3.6); CREATINE KINASE 80 UL (21-215); MAGNESIUM - SERUM 2.3 mg/dL (1.8-2.4); PRO BNP 65 pg/mL (0-125)
[2020-01-07 18:57] LABS: TROPONIN-I < 0.017 ng/mL (0.000-0.060)
[2020-01-07 19:00] VITALS: BP 175/99
[2020-01-07 20:30] VITALS: BP 173/69
[2020-01-07 21:30] VITALS: BP 145/81
--- NOTE | 2020-01-07 21:30 | NUR ---
PT UP TO BATHROOM DENIES NEEDS.
[2020-01-07 23:08] LABS: CREATINE KINASE 72 UL (21-215); TROPONIN-I < 0.017 ng/mL (0.000-0.060)
[2020-01-07 23:27] VITALS: BP 136/85
[2020-01-08] VITALS (15 sets, daily range): BP systolic 132–196; BP diastolic 67–104; BMI 42.6
--- NOTE | 2020-01-08 01:36 | NUR ---
PT C/O HERNADEZ AT THIS TIME REQUESTING NITRO PATCH BE TAKEN OFF.
[2020-01-08 07:27] LABS: CKMB 0.7 U/L (0.0-3.6); CREATINE KINASE 61 UL (21-215); TROPONIN-I < 0.017 ng/mL (0.000-0.060)
--- NOTE | 2020-01-08 08:00 | NUR ---
ED NURSE AT PTS BEDSIDE, PT CONTINUES TO REST IN POSITION OF COMFORT AND SAFETY AT THIS TIME. PT IS TO BE NPO AFTER MIDNIGHT D/T PT'S POC. PT INSTRUCTED TO CALL THE NURSE FOR ANY NEEDS OR CONCERNS. PT VERBALIZED UNDERSTANDING OF POC AND DENIES ANY CURRENT NEEDS OR CONCERNS.
[2020-01-08 09:43] LABS: BASOPHILS 0.1 % (0-2); EOSINOPHILS 0.2 % (0-7); HEMATOCRIT 40.8 % (36.0-48.0); HEMOGLOBIN 13.4 g/dL (12-16); IMMATURE GRANULOCYTES 0.2 % (0-5); LYMPHOCYTES 24.6 % (15-50); MCH 28.3 pg (26.0-34.0); MCHC 32.8 g/dL (31.0-37.0); MCV 86.3 fL (80.0-100.0); MEAN PLATELET VOLUME 11.5 fL (7.4-10.4); MONOCYTES 3.9 % (2-11); PLATELET COUNT 316 10x3/uL (130-400); RBC 4.73 10x6/uL (4.00-5.40); RDW 14.1 % (11.5-14.5); WBC 8.5 10x3/uL (4.8-10.8)
[2020-01-08 09:56] LABS: ALBUMIN 3.5 g/dL (3.4-5.0); ALKALINE PHOSPHATASE 146 U/L (30-120); ALT (SGPT) 47 U/L (10-68); BILIRUBIN - TOTAL 0.38 mg/dL (0.2-1.3); CALC OSMOLALITY 277 mosm/kg (275-300); CALCIUM 8.7 mg/dL (8.5-10.1); CARBON DIOXIDE 25.1 mmol/L (21.0-32.0); CHLORIDE - SERUM 105 mmol/L (98-107); CREATININE - SERUM 0.8 mg/dL (0.6-1.3); GLUCOSE 106 mg/dL (74-106); POTASSIUM - SERUM 3.4 mmol/L (3.5-5.1); PROTEIN - SERUM 7.6 g/dL (6.4-8.2); SODIUM 140 mmol/L (136-145); UREA NITROGEN 9 mg/dL (7-18); eGFR NON AFRICAN AMERICAN 82 mL/min (90-120)
--- NOTE | 2020-01-08 10:41 | NUR ---
PT CONTINUES TO REST IN POSITION OF COMFORT AND SAFETY AT THIS TIME WITH NO CURRENT NEEDS OR CONCERNS NOTED.
[2020-01-08 11:18] LABS: CHOL - HDL RATIO 3.9 ratio (2.3-4.1); LDL-HDL RATIO 2.6 ratio (1.5-3.5)
--- NOTE | 2020-01-08 14:23 | NUR ---
RECEIVED A CALL FROM MYESHA IN [facility] STATING THAT SHE DOES NOT HAVE THE PT ON THE LIST FOR A TEST TODAY. PER MYESHA, THE MARINE METEOROLOGIST AND A NURSE FROM THE [employer] HAS TO BE HERE TO DO THE TEST. MYESHA STATED THAT SHE IS THE ONLY ONE DOING THE TESTS TODAY BUT STATED THAT SHE CAN STILL THE PTS TEST IF DR MADERA WANTS HER TO HAVE IT DONE TODAY. DR MADERA CALLED REGARDING CONSULT OF THE PT, IT DOES NOT SHOW THAT DR MADERA HAS CONSULTED WITH THE PT. WAITING TO HEAR FROM DR MADERA AT THIS TIME.
--- NOTE | 2020-01-08 15:04 | NUR ---
REPORT GIVEN TO JOSEMANUEL CASTANO REGARDING PT GOING TO ROOM 2121.
--- NOTE | 2020-01-08 15:06 | NUR ---
PT'S DEPART ASSESSMENT IS INCORRECT. THE PT WAS ADMITTED TO ROOM 2121 AT 1506. PT HAS AN IV IN HER RIGHT FOREARM. PT'S IV CONTINUED. HANDOFF GIVEN TO JOSEMANUEL CASTANO AT 1506.
--- NOTE | 2020-01-08 15:36 | NUR ---
RECEIVED PT FROM ER. PT IS AAO AND UP AD HEMANTH. CALL LIGHT W/I REACH. TELEMETRY APPLIED. PIV SALINE LOCKED. QUICKSTART, HISTORY, MED REQ, AND ASSESSMENT COMPLETED. NO S/S OF DISTRESS NOTED. WILL CTM.
--- NOTE | 2020-01-08 19:24 | NUR ---
PT DEPART ASSESSMENT IS NOT CORRECT FOR THIS PT AND IS THE INFORMATION FOR ANOTHER PT. PT DEPARTED FROM THE ED TO
[2020-01-09 01:30] VITALS: BP 158/92
--- NOTE | 2020-01-09 01:38 | NUR ---
IV TO RFA INFILTRATED. 20G SITED TO RIGHT INNER FOREARM AND PT MEDICATED WITH DILAUDID IV FOR PAIN/DISCOMFORT. PT NOW NPO FOR AM CARDIOLYTE STRESS TEST.
--- NOTE | 2020-01-09 02:23 | NUR ---
PT C/O BEING HOT. ROOM THERMOSTAT IS SET FOR HIGH FAN/COOL/60 TEMP. LOCATED A FAN FOR PATIENT, BUT AFTER GETTING IT INTO ROOM, IT WOULD NOT TURN ON. WILL ATTEMPT TO LOCATE ANOTHER FAN.
[2020-01-09 04:35] VITALS: BP 197/94
[2020-01-09 07:42] LABS: ALBUMIN 3.4 g/dL (3.4-5.0); ALKALINE PHOSPHATASE 152 U/L (30-120); ALT (SGPT) 48 U/L (10-68); BILIRUBIN - TOTAL 0.35 mg/dL (0.2-1.3); CALC OSMOLALITY 275 mosm/kg (275-300); CALCIUM 8.4 mg/dL (8.5-10.1); CARBON DIOXIDE 29.5 mmol/L (21.0-32.0); CHLORIDE - SERUM 101 mmol/L (98-107); CREATININE - SERUM 0.7 mg/dL (0.6-1.3); PROTEIN - SERUM 7.6 g/dL (6.4-8.2); SODIUM 136 mmol/L (136-145); UREA NITROGEN 10 mg/dL (7-18); eGFR NON AFRICAN AMERICAN > 90 mL/min (90-120)
[2020-01-09 07:43] LABS: GLUCOSE 191 mg/dL (74-106)
[2020-01-09 07:48] LABS: BASOPHILS 0.1 % (0-2); EOSINOPHILS 1.2 % (0-7); HEMATOCRIT 44.2 % (36.0-48.0); HEMOGLOBIN 14.1 g/dL (12-16); IMMATURE GRANULOCYTES 0.3 % (0-5); MCH 27.8 pg (26.0-34.0); MCHC 31.9 g/dL (31.0-37.0); MEAN PLATELET VOLUME 11.4 fL (7.4-10.4); MONOCYTES 5.7 % (2-11); NEUTROPHILS 67.7 % (40-80); PLATELET COUNT 346 10x3/uL (130-400); RBC 5.08 10x6/uL (4.00-5.40); RDW 13.9 % (11.5-14.5); WBC 10.6 10x3/uL (4.8-10.8)
--- NOTE | 2020-01-09 08:01 | NUR ---
500MG OF TYLENOL GIVEN FOR HEADACHE, ALSO GAVE 25MG OF PHENERGAN IM FOR NAUSEA. PT DENIES ANY OTHER NEEDS AT THIS TIME. NPO COR CARDIOLOGY CONSULT.
[2020-01-09 08:28] VITALS: BP 165/109
[2020-01-09 11:08] VITALS: BP 120/75
--- NOTE | 2020-01-09 11:21 | NUR ---
0.5MG OF DILAUDID GIVEN FOR PAIN LEVEL OF 7/10. PT DENIES ANY OTHER NEEDS AT THIS TIME. CALL LIGHT IN REACH,NAD NOTED, WILL CONTINUE TO MONITOR.
[2020-01-09 12:58] VITALS: Ht 154.9 cm; Wt 102.1 kg
--- NOTE | 2020-01-09 15:24 | NUR ---
PROVIDED VERBAL AND WRITTEN DISCHARGE TEACHING TO PT, WHO VERBALIZED UNDERSTANDING REGARDING TEACHING. D/C RT FA IV WITH CATHETER TIP INTACT. HEART MONITOR REMOVED AND TAKEN TO PRINTING [employer]IES SALES REPRESENTATIVE. PT LEFT UNIT VIA WHEELCHAIR, WITH ALL BELONGINGS, NAD NOTED.
== END 2020-01-09 15:25 | disposition home or self-care (01) ==
LOC: D.ER 17:13 → OBSVTIME 19:37 → D.EDHOLD 19:37 → D.M2 19:37 → D.EDHOLD 19:37 → D.M2 01-08 14:30
PROVIDERS: Emergency Medicine; Family Medicine; Family Medicine Adult Medicine; ADMIT Family Medicine; ATTEND Family Medicine
DX: I20.0 Unstable angina (principal); I16.1 Hypertensive emergency; M19.90 Unspecified osteoarthritis, unspecified site; E87.6 Hypokalemia; Z85.038 Personal history of other malignant neoplasm of large intestine; R07.9 Chest pain, unspecified; R11.2 Nausea with vomiting, unspecified